=== PATIENT | female | born 1950 | race Caucasian/White ===

== ENCOUNTER → 2016-12-09 | Outpatient (CLI) | payer OTHER ==
[2016-12-09 07:39] LABS: Albumin 3.4 g/dL (3.4-5.0); Calcium 8.1 mg/dL (8.5-10.1); Potassium 4.8 mmol/L (3.5-5.1)
[2016-12-09 07:42] LABS: BUN/Creatinine Ratio 13.3; Bilirubin, Total 0.2 mg/dL (0.2-1.0)
== END | disposition home or self-care (01) ==
LOC: LAB 06:34
PROVIDERS: ATTEND Internal Medicine
DX: N18.3 Chronic kidney disease, stage 3 (moderate) (principal)
CPT/HCPCS: 36415; 80053

== ENCOUNTER → 2017-03-25 | Outpatient (CLI) | payer OTHER ==
[2017-03-25 07:39] LABS: Albumin 3.4 g/dL (3.4-5.0); BUN/Creatinine Ratio 13.5; Bilirubin, Total 0.3 mg/dL (0.2-1.0); Calcium 8.2 mg/dL (8.5-10.1); Potassium 4.1 mmol/L (3.5-5.1)
== END | disposition home or self-care (01) ==
LOC: LAB 06:28
PROVIDERS: ATTEND Internal Medicine
DX: N18.3 Chronic kidney disease, stage 3 (moderate) (principal); Z12.11 Encounter for screening for malignant neoplasm of colon
CPT/HCPCS: 36415; 80053

== ENCOUNTER → 2017-05-05 | Outpatient (CLI) | payer OTHER | END | disposition home or self-care (01) | LOC: LAB 13:57 | PROVIDERS: ATTEND Internal Medicine | DX: Z12.11 Encounter for screening for malignant neoplasm of colon (principal) ==

== ENCOUNTER → 2017-07-17 | Outpatient (CLI) | payer OTHER ==
[2017-07-17 08:05] LABS: Basophils # (auto) 0 uL; Basophils % (auto) 0.6 % (0.0-2.0); Eosinophils # (auto) 0.2 uL; Eosinophils % (auto) 2.4 % (0.0-7.0); Hematocrit 40.5 % (36.0-46.0); Hemoglobin 13.4 g/dL (12.2-16.2); Lymphocytes # (auto) 1.6 uL; Lymphocytes % (auto) 21.7 % (10.0-50.0); Mean Corpuscular Hgb Conc. 33.2 g/dL (32.0-36.0); Mean Corpuscular Volume 90.3 fL (80.0-100.0); Mean Platelet Volume 7.4 fL (6.9-10.8); Monocytes # (auto) 0.4 uL; Monocytes % (auto) 5.8 % (0.0-12.0); Neutrophils % (auto) 69.5 % (37.0-80.0); Nucleated Red Blood Cells % 0.1 %; Platelet Count (auto) 215 10^3/uL (140-450); Red Cell Distribution Width 13.5 % (11.8-14.3); White Blood Cell 7.2 10^3/uL (4.4-10.8)
[2017-07-17 08:25] LABS: Albumin 3.5 g/dL (3.4-5.0); BUN/Creatinine Ratio 14.5; Bilirubin, Total 0.3 mg/dL (0.2-1.0); Calcium 8.7 mg/dL (8.5-10.1); Potassium 4.1 mmol/L (3.5-5.1); Total Protein 7.1 g/dL (6.4-8.2)
== END | disposition home or self-care (01) ==
LOC: LAB 06:38
PROVIDERS: ATTEND Internal Medicine
DX: I12.9 Hypertensive chronic kidney disease with stage 1 through stage 4 chronic kidney disease, or unspecified chronic kidney disease (principal); N18.3 Chronic kidney disease, stage 3 (moderate); E03.9 Hypothyroidism, unspecified
CPT/HCPCS: 36415; 80053; 80061; 84443; 85025

== ENCOUNTER → 2017-10-28 | Outpatient (CLI) | payer OTHER ==
[2017-10-28 08:24] LABS: Albumin 3.6 g/dL (3.4-5.0); BUN/Creatinine Ratio 14.4; Bilirubin, Total 0.4 mg/dL (0.2-1.0); Calcium 8.5 mg/dL (8.5-10.1); Potassium 3.9 mmol/L (3.5-5.1); Total Protein 7.3 g/dL (6.4-8.2)
== END | disposition home or self-care (01) ==
LOC: LAB 06:43
PROVIDERS: ATTEND Internal Medicine
DX: Z00.01 Encounter for general adult medical examination with abnormal findings (principal); I12.9 Hypertensive chronic kidney disease with stage 1 through stage 4 chronic kidney disease, or unspecified chronic kidney disease; N18.3 Chronic kidney disease, stage 3 (moderate); E03.9 Hypothyroidism, unspecified
CPT/HCPCS: 36415; 80053; 82270

== ENCOUNTER → 2018-04-30 | Outpatient (CLI) | payer OTHER ==
[2018-04-30 08:16] LABS: Basophils # (auto) 0.1 uL; Basophils % (auto) 0.8 % (0.0-2.0); Eosinophils # (auto) 0.1 uL; Eosinophils % (auto) 2.2 % (0.0-7.0); Hematocrit 40.7 % (36.0-46.0); Hemoglobin 13.4 g/dL (12.2-16.2); Lymphocytes # (auto) 1.6 uL; Mean Corpuscular Hemoglobin 29.8 pg (28.0-32.0); Mean Corpuscular Hgb Conc. 32.9 g/dL (32.0-36.0); Mean Corpuscular Volume 90.4 fL (80.0-100.0); Monocytes # (auto) 0.4 uL; Monocytes % (auto) 6.2 % (0.0-12.0); Neutrophils # (auto) 4.6 uL; Neutrophils % (auto) 67.8 % (37.0-80.0); Platelet Count (auto) 220 10^3/uL (140-450); Red Cell Distribution Width 13.9 % (11.8-14.3); White Blood Cell 6.8 10^3/uL (4.4-10.8)
[2018-04-30 08:57] LABS: Albumin 3.5 g/dL (3.4-5.0); BUN/Creatinine Ratio 21.9; Bilirubin, Total 0.3 mg/dL (0.2-1.0); Calcium 8.8 mg/dL (8.5-10.1); Potassium 4.2 mmol/L (3.5-5.1); Total Protein 7.4 g/dL (6.4-8.2)
== END | disposition home or self-care (01) ==
LOC: LAB 07:03
PROVIDERS: ATTEND Internal Medicine
DX: Z00.01 Encounter for general adult medical examination with abnormal findings (principal); Z12.11 Encounter for screening for malignant neoplasm of colon; I12.9 Hypertensive chronic kidney disease with stage 1 through stage 4 chronic kidney disease, or unspecified chronic kidney disease; N18.3 Chronic kidney disease, stage 3 (moderate); E03.9 Hypothyroidism, unspecified
CPT/HCPCS: 36415; 80053; 80061; 82306; 84443; 85025

== ENCOUNTER → 2018-05-25 | Outpatient (CLI) | payer OTHER | END | disposition home or self-care (01) | LOC: LAB 10:06 | PROVIDERS: ATTEND Internal Medicine | DX: Z12.11 Encounter for screening for malignant neoplasm of colon (principal); I12.9 Hypertensive chronic kidney disease with stage 1 through stage 4 chronic kidney disease, or unspecified chronic kidney disease; N18.3 Chronic kidney disease, stage 3 (moderate); E03.9 Hypothyroidism, unspecified | CPT/HCPCS: 82270 ==

== ENCOUNTER → 2019-01-25 | Outpatient (CLI) | payer BC, OTHER ==
[2019-01-25 08:23] LABS: Potassium 4.8 mmol/L (3.5-5.1)
[2019-01-25 08:26] LABS: Albumin 3.5 g/dL (3.4-5.0); Calcium 9.2 mg/dL (8.5-10.1)
[2019-01-25 08:32] LABS: BUN/Creatinine Ratio 13.4; Bilirubin, Total 0.3 mg/dL (0.2-1.0); Total Protein 7.2 g/dL (6.4-8.2)
== END | disposition home or self-care (01) ==
LOC: LAB 07:21
PROVIDERS: ATTEND Internal Medicine
DX: I12.9 Hypertensive chronic kidney disease with stage 1 through stage 4 chronic kidney disease, or unspecified chronic kidney disease (principal); N18.3 Chronic kidney disease, stage 3 (moderate)
CPT/HCPCS: 36415; 80053

== ENCOUNTER → 2019-06-28 | Outpatient (CLI) | payer BC ==
[2019-06-28 10:28] LABS: Basophils # (auto) 0.1 uL; Basophils % (auto) 0.9 % (0.0-2.0); Eosinophils # (auto) 0.1 uL; Eosinophils % (auto) 1.6 % (0.0-7.0); Hematocrit 38.7 % (36.0-46.0); Hemoglobin 13.3 g/dL (12.2-16.2); Lymphocytes # (auto) 1.1 uL; Lymphocytes % (auto) 13.7 % (10.0-50.0); Mean Corpuscular Hgb Conc. 34.4 g/dL (32.0-36.0); Mean Corpuscular Volume 90.1 fL (80.0-100.0); Monocytes # (auto) 0.4 uL; Monocytes % (auto) 5.5 % (0.0-12.0); Neutrophils # (auto) 6.2 uL; Neutrophils % (auto) 78.3 % (37.0-80.0); Nucleated Red Blood Cells % 0.1 %; Platelet Count (auto) 220 10^3/uL (140-450); Red Cell Distribution Width 13.3 % (11.8-14.3); White Blood Cell 7.9 10^3/uL (4.4-10.8)
[2019-06-28 11:17] LABS: Albumin 3.6 g/dL (3.4-5.0); Calcium 8.7 mg/dL (8.5-10.1); Potassium 4.1 mmol/L (3.5-5.1)
[2019-06-28 11:22] LABS: BUN/Creatinine Ratio 15.8; Bilirubin, Total 0.4 mg/dL (0.2-1.0); Total Protein 7.2 g/dL (6.4-8.2)
== END | disposition home or self-care (01) ==
LOC: LAB 07:12
PROVIDERS: ATTEND Internal Medicine
DX: Z00.00 Encounter for general adult medical examination without abnormal findings (principal); Z12.11 Encounter for screening for malignant neoplasm of colon; E78.5 Hyperlipidemia, unspecified; I10 Essential (primary) hypertension
CPT/HCPCS: 36415; 80053; 80061; 82274; 82306; 84443; 85025

== ENCOUNTER → 2023-09-19 | Outpatient (CLI) | payer BC | END | disposition home or self-care (01) | LOC: LAB 06:38 | PROVIDERS: ATTEND Internal Medicine | DX: E55.9 Vitamin D deficiency, unspecified (principal) | CPT/HCPCS: 82306 ==

== ENCOUNTER → 2023-10-21 | Outpatient (CLI) | payer BC ==
[2023-10-21 07:00] LABS: Urine Epithelial Cast None Seen /hpf (<5)
[2023-10-21 07:28] LABS: Urine Bacteria NONE SEEN /hpf (None Seen); Urine Blood Negative /uL (Negative); Urine Clarity Clear (Clear); Urine Protein, UAD Negative (Negative); Urine Specific Gravity 1.008 (1.001-1.035); Urine Urobilinogen Normal (Negative); Urine WBC 2 /hpf (0 - 5)
[2023-10-21 07:35] LABS: Potassium 4.6 mmol/L (3.5-5.1)
[2023-10-21 07:36] LABS: Calcium 10.1 mg/dL (8.5-10.1)
[2023-10-21 07:41] LABS: BUN/Creatinine Ratio 13.8 (10.0-20.0); Protein, Urine < 6.0 mg/dL (0.0-11.9)
[2023-10-21 07:43] LABS: Albumin 4.1 g/dL (3.2-4.8); Creatinine, Urine 31.93 mg/dL (30.0-125.0); Phosphorus 3.1 mg/dL (2.4-5.1); Urine Protein/Creatinine Ratio 0.19
[2023-10-21 08:01] LABS: Urine Color Straw (Yellow)
[2023-10-21 08:32] LABS: Uric Acid 5.4 mg/dL (3.1-7.8)
== END | disposition home or self-care (01) ==
LOC: LAB 06:45
PROVIDERS: ATTEND Internal Medicine
DX: N18.31 Chronic kidney disease, stage 3a (principal); R80.9 Proteinuria, unspecified; R82.90 Unspecified abnormal findings in urine; M10.9 Gout, unspecified; E78.5 Hyperlipidemia, unspecified; E21.3 Hyperparathyroidism, unspecified; D63.1 Anemia in chronic kidney disease
CPT/HCPCS: 36415; 80069; 81001; 82306; 82570; 83970; 84156; 84550

== ENCOUNTER → 2024-03-02 | Outpatient (CLI) | payer BC ==
[2024-03-02 06:30] LABS: Urine Bacteria None Seen /hpf (None Seen)
[2024-03-02 07:00] LABS: Basophils # (auto) 0 10 ^3/uL (0-0.2); Basophils % (auto) 0.5 % (0.0-2.0); Eosinophils # (auto) 0.1 10 ^3/uL (0-0.8); Eosinophils % (auto) 2.2 % (0.0-7.0); Hematocrit 39.4 % (36.0-46.0); Hemoglobin 13.4 g/dL (12.2-16.2); Lymphocytes % (auto) 30.5 % (10.0-50.0); Mean Corpuscular Hgb Conc. 33.9 g/dL (32.0-36.0); Mean Corpuscular Volume 88.4 fL (80.0-100.0); Monocytes # (auto) 0.4 10 ^3/uL (0-1.3); Monocytes % (auto) 6.2 % (0.0-12.0); Neutrophils # (auto) 4.1 10 ^3/uL (1.6-8.6); Neutrophils % (auto) 60.6 % (37.0-80.0); Nucleated Red Blood Cells % 0.1 %; Red Blood Cells 4.46 10^6/uL (4.0-5.20); Red Cell Distribution Width 13.3 % (11.8-14.3); White Blood Cell 6.7 10^3/uL (4.4-10.8)
[2024-03-02 07:11] LABS: Urine Blood Negative /uL (Negative); Urine Clarity Clear (Clear); Urine Color Light-Yellow (Yellow); Urine Protein, UAD Negative (Negative); Urine Specific Gravity 1.011 (1.001-1.035); Urine Urobilinogen Normal (Negative); Urine WBC 3 /hpf (0 - 5)
[2024-03-02 07:20] LABS: Potassium 4.3 mmol/L (3.5-5.1)
[2024-03-02 07:21] LABS: Calcium 9.9 mg/dL (8.5-10.1)
[2024-03-02 07:26] LABS: Albumin 3.9 g/dL (3.2-4.8); BUN/Creatinine Ratio 12.1 (10.0-20.0)
[2024-03-02 07:28] LABS: Phosphorus 3.1 mg/dL (2.4-5.1)
[2024-03-02 07:43] LABS: Uric Acid 6.1 mg/dL (3.1-7.8)
[2024-03-02 08:14] LABS: Creatinine, Urine 60.68 mg/dL (30.0-125.0)
[2024-03-02 08:18] LABS: Protein, Urine 8.1 mg/dL (0.0-11.9); Urine Protein/Creatinine Ratio 0.13
== END | disposition home or self-care (01) ==
LOC: LAB 06:12
PROVIDERS: ATTEND Internal Medicine
DX: N18.31 Chronic kidney disease, stage 3a (principal); D63.1 Anemia in chronic kidney disease; E21.3 Hyperparathyroidism, unspecified; E78.5 Hyperlipidemia, unspecified; M10.9 Gout, unspecified; R80.9 Proteinuria, unspecified; R82.90 Unspecified abnormal findings in urine
CPT/HCPCS: 36415; 80069; 81001; 82306; 82570; 83970; 84156; 84550; 85025

== ENCOUNTER → 2024-06-29 | Outpatient (CLI) | payer BC ==
[2024-06-29 12:21] LABS: Free T3 2.22 pg/mL (2.3-4.2)
[2024-06-29 12:25] LABS: Free T4 (Free Thyroxine) 1.03 ng/dL (0.89-1.76)
== END | disposition home or self-care (01) ==
LOC: LAB 10:03
PROVIDERS: ATTEND Internal Medicine
DX: G62.9 Polyneuropathy, unspecified (principal); E03.9 Hypothyroidism, unspecified
CPT/HCPCS: 36415; 82607; 84439; 84443; 84481

== ENCOUNTER → 2024-07-13 | Outpatient (CLI) | payer BC ==
[2024-07-13 07:36] LABS: Urine Bacteria None Seen /hpf (None Seen)
[2024-07-13 07:38] LABS: Basophils # (auto) 0 10 ^3/uL (0-0.2); Basophils % (auto) 0.7 % (0.0-2.0); Eosinophils # (auto) 0.1 10 ^3/uL (0-0.8); Eosinophils % (auto) 2.1 % (0.0-7.0); Hematocrit 40.1 % (36.0-46.0); Hemoglobin 13.2 g/dL (12.2-16.2); Lymphocytes # (auto) 1.5 10 ^3/uL (0.4-5.4); Lymphocytes % (auto) 23.2 % (10.0-50.0); Mean Corpuscular Hemoglobin 29.9 pg (28.0-32.0); Mean Corpuscular Hgb Conc. 32.9 g/dL (32.0-36.0); Monocytes # (auto) 0.4 10 ^3/uL (0-1.3); Monocytes % (auto) 6.7 % (0.0-12.0); Neutrophils # (auto) 4.4 10 ^3/uL (1.6-8.6); Neutrophils % (auto) 67.3 % (37.0-80.0); Nucleated Red Blood Cells % 0.1 %; Platelet Count (auto) 209 10^3/uL (140-450); Red Blood Cells 4.41 10^6/uL (4.0-5.20); Red Cell Distribution Width 14.6 % (11.8-14.3); White Blood Cell 6.5 10^3/uL (4.4-10.8)
[2024-07-13 07:59] LABS: Urine Blood Negative /uL (Negative); Urine Clarity Clear (Clear); Urine Color Light-Yellow (Yellow); Urine Protein, UAD Negative (Negative); Urine Specific Gravity 1.011 (1.001-1.035); Urine Urobilinogen Normal (Negative); Urine WBC 2 /hpf (0 - 5)
[2024-07-13 08:23] LABS: Potassium 5.1 mmol/L (3.5-5.1)
[2024-07-13 08:24] LABS: Calcium 10.2 mg/dL (8.7-10.4)
[2024-07-13 08:25] LABS: Protein, Urine < 6.0 mg/dL (1-14)
[2024-07-13 08:27] LABS: Creatinine, Urine 38.37 mg/dL (30.0-125.0); Urine Protein/Creatinine Ratio 0.16
[2024-07-13 08:30] LABS: Albumin 3.9 g/dL (3.2-4.8)
[2024-07-13 08:31] LABS: Phosphorus 4.1 mg/dL (2.4-5.1)
== END | disposition home or self-care (01) ==
LOC: LAB 07:23
PROVIDERS: ATTEND Internal Medicine
DX: E11.21 Type 2 diabetes mellitus with diabetic nephropathy (principal); N39.0 Urinary tract infection, site not specified; N18.30 Chronic kidney disease, stage 3 unspecified; E21.3 Hyperparathyroidism, unspecified; D63.1 Anemia in chronic kidney disease; M10.9 Gout, unspecified; E55.9 Vitamin D deficiency, unspecified; R80.9 Proteinuria, unspecified
CPT/HCPCS: 36415; 80069; 81001; 82570; 83970; 84156; 84550; 85025

== ENCOUNTER 2024-09-03 10:23 | Day surgery (SDC) | payer BC ==
[2024-09-01 09:25] LABS: Urine Bacteria None Seen /hpf (None Seen)
[2024-09-01 09:28] LABS: Basophils # (auto) 0 10 ^3/uL (0-0.2); Basophils % (auto) 0.7 % (0.0-2.0); Eosinophils # (auto) 0.1 10 ^3/uL (0-0.8); Eosinophils % (auto) 1.4 % (0.0-7.0); Hematocrit 40.6 % (36.0-46.0); Hemoglobin 13.2 g/dL (12.2-16.2); Lymphocytes # (auto) 1.3 10 ^3/uL (0.4-5.4); Lymphocytes % (auto) 18.2 % (10.0-50.0); Mean Corpuscular Hemoglobin 29.2 pg (28.0-32.0); Mean Corpuscular Hgb Conc. 32.5 g/dL (32.0-36.0); Monocytes # (auto) 0.4 10 ^3/uL (0-1.3); Monocytes % (auto) 5.5 % (0.0-12.0); Neutrophils # (auto) 5.1 10 ^3/uL (1.6-8.6); Neutrophils % (auto) 74.2 % (37.0-80.0); Nucleated Red Blood Cells % 0.1 %; Red Blood Cells 4.51 10^6/uL (4.0-5.20); Red Cell Distribution Width 14.2 % (11.8-14.3); White Blood Cell 6.9 10^3/uL (4.4-10.8)
[2024-09-01 09:29] LABS: Platelet Count (auto) 192 10^3/uL (140-450)
[2024-09-01 10:10] LABS: INR 1.12 (0.9-1.15); Partial Thromboplastin Time 25.2 SEC (24.5-34.5); Prothrombin Time 11.8 sec (9.3-11.8)
[2024-09-01 10:15] LABS: Urine Blood Negative /uL (Negative); Urine Clarity Clear (Clear); Urine Color Light-Yellow (Yellow); Urine Hyaline Cast FEW /lpf (0 - 2); Urine Protein, UAD Negative (Negative); Urine Specific Gravity 1.016 (1.001-1.035); Urine Urobilinogen Normal (Negative); Urine WBC 1 /hpf (0 - 5)
[2024-09-01 11:05] LABS: Alanine Aminotransferase 11 U/L (7-40); Albumin 3.9 g/dL (3.2-4.8); Alkaline Phosphatase 48 U/L (46-116); Anion Gap 9 (5-15); Aspartate Aminotransferase 16 U/L (13-40); BUN/Creatinine Ratio 12.4 (10.0-20.0); Blood Urea Nitrogen 18 mg/dL (9-23); Calcium 10.3 mg/dL (8.7-10.4); Carbon Dioxide 25 mmol/L (20-31); Glucose 89 mg/dL (74-106); Potassium 4.1 mmol/L (3.5-5.1); Sodium 141 mmol/L (136-145); Total Protein 6.5 g/dL (5.7-8.2)
[2024-09-01 11:18] LABS: Bilirubin, Total 0.2 mg/dL (0.2-1.0); Chloride 107 mmol/L (98-107)
[~2024-09-03] VITALS: Ht 147.3 cm; Wt 52.2 kg
[~2024-09-03 10:23] MED LIST: AMIT25TA20 PO; CITA-73 PO; LEVO50TA7 PO; RALO60TA14 PO; RIS1T PO
[2024-09-03] MEDS ORDERED: KETAMINE 50mg/ML 1ml syringe IV ONE (10:24)
[2024-09-03 13:46] VITALS: PULSE 77; RESP 10; O2SAT 98
[2024-09-03] MEDS ORDERED: MIDAZOLAM HCL 2MG/2ML 2ml VIAL (1mg/ml) ONE (14:06)
[2024-09-03] MEDS ORDERED: PROPOFOL 10 MG/ML 20 ML IV ONE (14:07)
[2024-09-03 14:46] VITALS: PULSE 77; RESP 10; TEMP 99.4; O2SAT 98
--- NOTE | 2024-09-03 15:21 | DVHOP2 ---
Operative Report DATE OF OPERATION: 09/03/24 PROCEDURE: Diagnostic Colonoscopy. PREOPERATIVE INDICATION: The patient is a 74 -year-old female undergoing colonoscopy for colon cancer screening with personal history of chronic constipation POSTOPERATIVE DIAGNOSES: 1. Patient had moderate to severe tortuosity and redundancy of the colon 2. Trace internal hemorrhoids otherwise essentially completely normal colonoscopy examination up to the cecum and terminal ileum PROCEDURE PERFORMED BY: Tolu Escobar M.D. SCOPE: Olympus videocolonoscope. ASA CLASS: 3. PREOPERATIVE MEDICATIONS: Dr. Javi Hook PROCEDURE IN DETAIL: After obtaining an informed consent, the patient was placed on left lateral decubitus position. She was then sedated with the above medications. A rectal examination was performed that was normal. The colonoscope was then passed through the anus into the rectosigmoid and through the descending, transverse, and ascending colon up to the cecum with visualization of the appendiceal orifice, base of the cecum and the i leocecal valve. The colonoscope was then withdrawn. The distal 5 cm of the terminal ileum were normal. The patient had [id number] tortuosity and redundancy of the entire colon especially involving the mid transverse and the splenic flexure. This patient had a slightly poor prep however after careful irrigation aspiration no gross lesion was seen On retroflexion and straight on view she had trace to 1+ internal hemorrhoids The patient tolerated the procedure well without difficulty. WITHDRAWAL TIME: 7 minutes QUALITY OF THE PREP: [place] Bowel Prep score: 8 COMPLICATIONS : None SPECIMENS: None DISPOSITION: Stable D/C to home PLAN: 1. Repeat colonoscopy in 10 years 2. Resume GI soft diet advance as tolerated 3. Local anorectal hemorrhoidal care 4. MiraLax and stool softeners 5. Outpatient follow up with me in 4-6 weeks to review results and discuss further management TOLU ESCOBAR MD Sep 03, 2024 15:21
[2024-09-03 16:10] VITALS: BP 153/76; PULSE 79; RESP 17; O2SAT 95
== END 2024-09-03 16:16 | disposition home or self-care (01) ==
LOC: GI 10:23
PROVIDERS: ATTEND Internal Medicine Gastroenterology
DX: K59.09 Other constipation (principal); Q43.8 Other specified congenital malformations of intestine; K64.8 Other hemorrhoids; N18.30 Chronic kidney disease, stage 3 unspecified; F20.9 Schizophrenia, unspecified; E03.9 Hypothyroidism, unspecified; Z90.710 Acquired absence of both cervix and uterus; Z88.2 Allergy status to sulfonamides; Z79.890 Hormone replacement therapy; Z98.51 Tubal ligation status
CPT/HCPCS: 36415; 45378; 80053; 81001; 85025; 85610; 85730; J2250; J2704; J7030; J2405

== ENCOUNTER → 2024-10-04 | Outpatient (CLI) | payer BC ==
[2024-10-04 07:01] LABS: Urine Bacteria None Seen /hpf (None Seen)
[2024-10-04 07:30] LABS: Urine Blood Negative /uL (Negative); Urine Clarity Clear (Clear); Urine Color Light-Yellow (Yellow); Urine Protein, UAD Negative (Negative); Urine Specific Gravity 1.015 (1.001-1.035); Urine Squamous Epithelial Cell None Seen /hpf (<5); Urine Urobilinogen Normal (Negative); Urine WBC 2 /hpf (0 - 5)
[2024-10-04 08:02] LABS: Creatinine, Urine 53.67 mg/dL (30.0-125.0)
[2024-10-04 08:05] LABS: Basophils # (auto) 0 10 ^3/uL (0-0.2); Basophils % (auto) 0.7 % (0.0-2.0); Eosinophils # (auto) 0.1 10 ^3/uL (0-0.8); Eosinophils % (auto) 2.3 % (0.0-7.0); Hematocrit 40.6 % (36.0-46.0); Hemoglobin 13.5 g/dL (12.2-16.2); Lymphocytes # (auto) 1.5 10 ^3/uL (0.4-5.4); Lymphocytes % (auto) 25.6 % (10.0-50.0); Mean Corpuscular Hemoglobin 29.5 pg (28.0-32.0); Mean Corpuscular Hgb Conc. 33.2 g/dL (32.0-36.0); Mean Corpuscular Volume 88.9 fL (80.0-100.0); Monocytes # (auto) 0.4 10 ^3/uL (0-1.3); Monocytes % (auto) 7.4 % (0.0-12.0); Neutrophils # (auto) 3.7 10 ^3/uL (1.6-8.6); Nucleated Red Blood Cells % 0.1 %; Platelet Count (auto) 184 10^3/uL (140-450); Red Blood Cells 4.56 10^6/uL (4.0-5.20); Red Cell Distribution Width 13.9 % (11.8-14.3); White Blood Cell 5.7 10^3/uL (4.4-10.8)
[2024-10-04 08:06] LABS: Alanine Aminotransferase 10 U/L (7-40); Alkaline Phosphatase 49 U/L (46-116); Anion Gap 7 (5-15); Aspartate Aminotransferase 21 U/L (13-40); BUN/Creatinine Ratio 16.2 (10.0-20.0); Blood Urea Nitrogen 22 mg/dL (9-23); Calcium 9.4 mg/dL (8.7-10.4); Carbon Dioxide 24 mmol/L (20-31); Chloride 107 mmol/L (98-107); Cholesterol 187 mg/dL (< 200); Glucose 87 mg/dL (74-106); LDL Cholesterol 88 mg/dL (< 100); Potassium 4.2 mmol/L (3.5-5.1); Sodium 138 mmol/L (136-145); Triglycerides 103 mg/dL (< 150)
[2024-10-04 08:07] LABS: Bilirubin, Total 0.3 mg/dL (0.2-1.0); Total Protein 6.6 g/dL (5.7-8.2)
[2024-10-04 08:09] LABS: Micro Albumin < 3.0 mg/L (<30.0)
[2024-10-04 08:10] LABS: HDL Cholesterol 77 mg/dL (40-59)
[2024-10-04 10:43] LABS: Free T3 2.54 pg/mL (2.3-4.2)
[2024-10-04 10:44] LABS: Free T4 (Free Thyroxine) 1.06 ng/dL (0.89-1.76)
== END | disposition home or self-care (01) ==
LOC: LAB 06:11
PROVIDERS: ATTEND Internal Medicine
DX: Z00.01 Encounter for general adult medical examination with abnormal findings (principal); I13.0 Hypertensive heart and chronic kidney disease with heart failure and stage 1 through stage 4 chronic kidney disease, or unspecified chronic kidney disease; I50.42 Chronic combined systolic (congestive) and diastolic (congestive) heart failure; N18.32 Chronic kidney disease, stage 3b; E03.9 Hypothyroidism, unspecified; I77.810 Thoracic aortic ectasia
CPT/HCPCS: 36415; 80053; 80061; 81001; 82043; 82570; 83036; 84439; 84443; 84481; 85025

== ENCOUNTER → 2025-01-07 | Outpatient (CLI) | payer BC ==
[2025-01-07 06:35] LABS: Urine Bacteria None Seen /hpf (None Seen)
[2025-01-07 06:54] LABS: Basophils # (auto) 0 10 ^3/uL (0-0.2); Basophils % (auto) 0.6 % (0.0-2.0); Eosinophils # (auto) 0.2 10 ^3/uL (0-0.8); Eosinophils % (auto) 2.9 % (0.0-7.0); Lymphocytes # (auto) 1.7 10 ^3/uL (0.4-5.4); Lymphocytes % (auto) 30.1 % (10.0-50.0); Mean Corpuscular Hemoglobin 29.8 pg (28.0-32.0); Mean Corpuscular Hgb Conc. 33.3 g/dL (32.0-36.0); Mean Corpuscular Volume 89.4 fL (80.0-100.0); Monocytes # (auto) 0.4 10 ^3/uL (0-1.3); Neutrophils # (auto) 3.2 10 ^3/uL (1.6-8.6); Neutrophils % (auto) 58.4 % (37.0-80.0); Platelet Count (auto) 196 10^3/uL (140-450); Red Blood Cells 4.36 10^6/uL (4.0-5.20); Red Cell Distribution Width 14.2 % (11.8-14.3); White Blood Cell 5.5 10^3/uL (4.4-10.8)
[2025-01-07 06:57] LABS: Potassium 4.4 mmol/L (3.5-5.1)
[2025-01-07 06:58] LABS: Calcium 10.3 mg/dL (8.7-10.4)
[2025-01-07 07:03] LABS: BUN/Creatinine Ratio 9.6 (10.0-20.0)
[2025-01-07 07:04] LABS: Albumin 4.2 g/dL (3.2-4.8)
[2025-01-07 07:05] LABS: Urine Blood Negative /uL (Negative); Urine Clarity Clear (Clear); Urine Color Light-Yellow (Yellow); Urine Protein, UAD Negative (Negative); Urine Squamous Epithelial Cell None Seen /hpf (<5); Urine Urobilinogen Normal (Negative); Urine WBC 1 /HPF (0-5); Urine pH 5.5 (5.0-9.0)
[2025-01-07 07:06] LABS: Phosphorus 3.8 mg/dL (2.4-5.1)
[2025-01-07 07:25] LABS: Uric Acid 6.6 mg/dL (3.1-7.8)
[2025-01-07 07:31] LABS: Creatinine, Urine 30.21 mg/dL (30.0-125.0)
[2025-01-07 07:38] LABS: Micro Albumin < 3.0 mg/L (<30.0)
== END | disposition home or self-care (01) ==
LOC: LAB 06:23
PROVIDERS: ATTEND Internal Medicine
DX: E11.21 Type 2 diabetes mellitus with diabetic nephropathy (principal); E11.22 Type 2 diabetes mellitus with diabetic chronic kidney disease; N18.30 Chronic kidney disease, stage 3 unspecified; N39.0 Urinary tract infection, site not specified; E21.3 Hyperparathyroidism, unspecified; R80.9 Proteinuria, unspecified; M10.9 Gout, unspecified; E55.9 Vitamin D deficiency, unspecified; D63.1 Anemia in chronic kidney disease
CPT/HCPCS: 36415; 80069; 81001; 82043; 82570; 83970; 84550; 85025

== ENCOUNTER 2025-05-12 08:02 | Outpatient (CLI) | payer BC ==
[2025-05-12 08:23] LABS: Hematocrit 38.9 % (36.0-46.0); Hemoglobin 13.2 g/dL (12.2-16.2); Mean Corpuscular Hemoglobin 29.6 pg (28.0-32.0); Mean Corpuscular Volume 87.2 fL (80.0-100.0); Nucleated Red Blood Cells % 0.1 %
[2025-05-12 08:27] LABS: Urine Protein, UAD Negative (Negative)
[2025-05-12 08:29] LABS: Chloride 106.0 mmol/L (98-107); Sodium 142.0 mmol/L (136-145)
[2025-05-12 08:30] LABS: Anion Gap 6.0 (5-15); Calcium 10.0 mg/dL (8.7-10.4); Carbon Dioxide 30.0 mmol/L (20-31)
[2025-05-12 08:35] LABS: BUN/Creatinine Ratio 10.6 (10.0-20.0); Blood Urea Nitrogen 15.0 mg/dL (9-23); Glucose 93.0 mg/dL (74-106)
[2025-05-12 08:37] LABS: Albumin 4.4 g/dL (3.2-4.8)
[2025-05-12 08:42] LABS: Potassium 5.7 mmol/L (3.5-5.1)
[2025-05-12 08:52] LABS: Protein, Urine < 6.0 mg/dL (1-14)
[2025-05-12 09:18] LABS: Uric Acid 6.8 mg/dL (3.1-7.8)
[2025-05-12] MEDS ORDERED: NITR-87 PO (14:28)
== END 2025-05-12 17:00 | disposition home or self-care (01) ==
LOC: LAB 08:02
PROVIDERS: ATTEND Internal Medicine
DX: E11.22 Type 2 diabetes mellitus with diabetic chronic kidney disease (principal); E11.21 Type 2 diabetes mellitus with diabetic nephropathy; N18.30 Chronic kidney disease, stage 3 unspecified; E21.3 Hyperparathyroidism, unspecified; E55.9 Vitamin D deficiency, unspecified; N39.0 Urinary tract infection, site not specified; D63.1 Anemia in chronic kidney disease; M10.9 Gout, unspecified; R80.9 Proteinuria, unspecified
CPT/HCPCS: 36415; 80069; 81001; 82306; 82570; 83970; 84156; 84550; 85025

== ENCOUNTER 2025-05-12 09:35 | Emergency (ER) | payer BC ==
[~2025-05-12] VITALS: Ht 147.3 cm; Wt 49.0 kg
[2025-05-12] MEDS ORDERED: InsuLIN REG 1unit/0.01ml Soln (100units/ml) IV ONE (10:00)
[2025-05-12] MEDS ORDERED: DEXTROSE (50%) 50ML SYRG IV ONE (10:00)
--- NOTE | 2025-05-12 10:12 | ED.PDOC ---
History of Present Illness HPI Comments This is a 75-year-old female with past medical history of CKD stage 3, Alzheimer dementia, schizophrenia, hypothyroidism presented to the ED referred from PCP due to abnormal labs. She complains of generalized weakness, loss of balance, intermittent constipation and decreased urine output for last 1 week. She has CKD stage [address] Herring. She denies fever, chills, shortness of breath, chest pain, palpitation, dysuria, hematuria or altered bowel habit. Attestation note: Dr. Aguilera: I was the supervising attending for this ED encounter. Please see the resident's notes. I was available for questions and consultations. Differential diagnosis: MDM: MDM: patient presented with the above HPI.--reported hyperkalemia---workup was initiated. patient was found with the above mentioned diagnosis. the following medications were ordered: please refer to order lists of meds and tests obtained by myself Dr. Aguilera. Patient ED course and VS have been stabilized. Patient has been reassessed in the ED and remained in a stable condition. Pertinent incidental findings were discussed with the patient and/or family. Patient/family voices understanding and is agreeable with plan. Patient has been observed in the ED adequate length of time to insure improvement/stability. Escalation of care considered: Consideration of escalation to observation or admission Repeat labs here in the ED shows normal potassium. Patient was found with possible UTI in the setting of an elderly patient with generalized weakness. Antibiotics were initiated. Patient was DISCHARGED home in a stable condition. All the reports of any imaging studies that were ordered by myself were reviewed by myself. Chief Complaint: Abnormal LAB's Time Seen by MD: 09:40 Allergies: Coded Allergies: Sulfa Antibiotics (Verified Allergy, Intermediate, Flu like symptoms, 09/01/24) Home Meds Active Scripts Nitrofurantoin Monohydrate Mac (Macrobid) 100 Mg Cap, 100 MG PO BID for 7 Days, #14 CAP Prov:JOHNATHAN AGUILERA DO 05/12/25 Reported Medications Citalopram Hydrobromide (Citalopram Hydrobromide) 40 Mg Tab, 40 MG PO DAILY for 30 Days, MG 09/01/24 Raloxifene Hydrochloride (EVISTA TABLET) 60 Mg Tb, 1 TAB PO DAILY, #30 TAB 11 Refills 09/01/24 Levothyroxine Sodium (Levothyroxine Sodium) 50 Mcg Tab, 50 MCG PO QAM for 30 Days, MCG 09/01/24 Amitriptyline Hcl (Amitriptyline Hcl) 25 Mg Tab, 100 MG PO HS for 30 Days, MG 09/01/24 Risperidone (RisperDAL TABLET) 1 Mg Tb, 1 TAB PO QPM, #30 TAB 1 Refill 09/01/24 Information Source: Patient Mode of Arrival: Ambulatory Past Medical History PAST MEDICAL HISTORY: Alzheimer, CKF, Depression, Schizophrenia, Thyroid Surgical History: Hysterectomy DOUBLE END TRIMMER History: Denies all DOUBLE END TRIMMER Hx Family History Family History: Reviewed,noncontributory to illness Social History Smoker: Non-Smoker Alcohol: Denies ETOH Use Drugs: Denies Drug Use Lives In: Home Constitutional: reports: fatigue, weakness; denies: chills, diaphoresis, fever, malaise, sweats, others EENTM: denies: blurred vision, double vision, ear bleeding, ear discharge, ear drainage, ear pain, ear ringing, eye pain, eye redness, hearing loss, mouth pain, mouth swelling, nasal discharge, nose bleeding, nose congestion, nose pain, photophobia, tearing, throat pain, throat swelling, voice changes, others Respiratory: denies: cough, hemoptysis, orthopnea, SOB at rest, shortness of breath, SOB with excertion, stridor, wheezing, others Cardiovascular: denies: chest pain, dizzy spells, diaphoresis, Dyspnea on exertion, edema, irregular heart beat, left arm pain, lightheadedness, palpitations, PND, syncope, others Gastrointestinal: reports: constipated; denies: abdomen distended, abdominal pain, blood streaked bowels, diarrhea, dysphagia, difficulty swallowing, hematemesis, melena, nausea, poor appetite, poor fluid intake, rectal bleeding, rectal pain, vomiting, others Genitourinary: denies: abnormal vagina bleeding, burning, dyspareunia, dysuria, flank pain, frequency, hematuria, incontinence, pain, , vagina discharge, urgency, others Neurological: denies: dizziness, fainting, headache, left sided numbness, left sided weakness, numbness, paresthesia, pre-existing deficit, right sided numbness, right sided weakness, seizure, speech problems, tingling, tremors, weakness, others Musculoskeletal: denies: back pain, gout, joint pain, joint swelling, muscle pain, muscle stiffness, neck pain, others Integumetry: denies: bruises, change in color, change in hair/nails, dryness, laceration, lesions, lumps, rash, wounds, others Allergic/Immunocompromised: denies: Difficulty Healing, Frequent Infections, Hives, Itching, others Hematologic/Lymphatic: denies: anemia, blood clots, easy bleeding, easy bruising, swollen glands, others Endocrine: denies: excessive hunger, excessive sweating, excessive thirst, excessive urination, flushing, intolerance to cold, intolerance to heat, une xplained weight gain, unexplained weight loss, others Psychiatric: reports: depression, schizophrenia; denies: anxiety, bipolar disorder, hopeless, panic disorder, sleepless, suicidal, others Physical Exam General Appearance: Normal HEENT: Normal ENT Inspection, Pharynx Normal, TMs Normal Neck: Full Range of Motion, Non-Tender, Normal, Normal Inspection Respiratory: Chest Non-Tender, Lungs Clear, No Accessory Muscle Use, No Respiratory Distress, Normal Breath Sounds Cardiovascular: No Edema, No JVD, No Murmur, No Gallop, Normal Peripheral Pulses, Regular Rate/Rhythm Breast Exam: Deferred Gastrointestinal: No Organomegaly, Non Tender, No Pulsatile Mass, Normal Bowel Sounds, Soft Genitalia: Deferred Pelvic: Deferred Rectal: Deferred Extremities: No calf tenderness, Normal capillary refill, Normal inspection, Normal range of motion, Non-tender, No pedal edema Neurologic: NOT DONE Cerebellar Function: NOT DONE Reflexes: NOT DONE Skin: NOT DONE Peripheral Pulses: 2+ carotid (R), 2+ carotid (L), 2+ femoral (R), 2+ femoral (L), 2+ dorsalis pedis (R), 2+ dorsalis pedis (L), 2+ Radial (R), 2+ Radial (L), 2+ Brachial (R), 2+ Brachial (L) Lymphatic: NOT DONE Was a procedure done? Was a procedure done?: No EKG EKG : Cardiac Rhythm: NSR Comments EKG revealed normal sinus rhythm, nonspecific ST-T changes Differential Dx Considerations may include: Hyperkalemia, GURINDER on CKD, UTI, generalized weakness X-Ray, Labs, Meds, VS Vital Signs Date Time Temp Pulse Resp B/P (MAP) Pulse Ox O2 Delivery O2 Flow Rate FiO2 8/14/25 14:00 97 22 103/69 (80) 95 05/12/25 13:25 97.9 89 23 149/76 (100) 96 97.9 05/12/25 13:01 Room Air* 0 21 05/12/25 11:37 96 Room Air* 0 21 05/12/25 11:36 97.9 82 24 146/76 (99) 96 97.9 05/12/25 10:46 85 16 98 Room Air 05/12/25 10:46 98.3 85 16 145/83 (103) 98 98.3 05/12/25 10:21 16 97 Room Air* 0 21 05/12/25 09:42 80 05/12/25 09:36 98.4 95 16 159/72 96 98.4 Lab Test 05/12/25 11:24 05/12/25 10:40 05/12/25 10:23 Range/Units Sodium Level 141 136-145 mmol/L Potassium Level 4.1 3.5-5.1 mmol/L Chloride Level 105 98-107 mmol/L Carbon Dioxide Level 26 20-31 mmol/L Anion Gap 10 5-15 Blood Urea Nitrogen 11 9-23 mg/dL Creatinine 1.36 H 0.550-1.02 mg/dL Glomerular Filtration Rate Calc 40 >90 mL/min BUN/Creatinine Ratio 8.1 L 10.0-20.0 Serum Glucose 99 74-106 mg/dL Calcium Level 9.8 8.7-10.4 mg/dL Urine Color Light-yellow Yellow Urine Clarity Clear Clear Urine pH 5.5 5.0-9.0 Urine Specific Twilight 1.009 1.001-1.035 Urine Protein Negative Negative Urine Ketones Negative Negative Urine Blood Negative Negative /uL Urine Nitrite Negative Negative Urine Bilirubin Negative Negative Urine Urobilinogen Normal Negative mg/dL Urine Leukocyte Esterase 1+ Negative /uL Urine RBC 1 0 - 4 /hpf Urine Microscopic WBC 6 H 0-5 /HPF Urine Squamous Epithelial Cells Few <5 /hpf Urine Bacteria None seen None Seen /hpf Urine Glucose Normal Normal mg/dL Magnesium Level 1.8 1.6-2.6 mg/dL Current Medications Medications (Trade) Dose Ordered Sig/Margarita Route Start Time Stop Time Status Last Admin Albuterol (Ventolin Medneb) 20 mg ONCE ONCE NEB 05/12/25 10:00 05/12/25 10:10 DC 05/12/25 10:21 Ceftriaxone Sodium 50 ml @ 100 mls/hr ONCE ONCE IV 05/12/25 11:45 05/12/25 12:14 DC 05/12/25 12:21 X-Ray, Labs, Meds, VS Comment CHEST RADIOGRAPH Indication: Generalized weakness Technique: Single frontal view of the chest was obtained COMPARISON: None FINDINGS: Lines and Tubes: None Lungs: Clear Pleura: No effusion. No pneumothorax. Cardiomediastinal contours: Unremarkable Bones: Unremarkable IMPRESSION: 1. No acute disease. Images Reviewed?: Images reviewed and evaluated by me Time of 1ST Reevaluation: 12:00 Reevaluation 1ST: Unchanged Patient Education/Counseling: Diagnosis, Treatment Family Education/Counseling: Diagnosis, Treatment Comments This is a 75-year-old female presented to the ED for abnormal lab referred from PCP BMP revealed hyperkalemia potassium 5.7, creatinine 1.81 Hyperkalemia protocol was ordered But repeat BMP demonstrated normal potassium 4.1 and creatinine 1.36 UA demonstrated 1+ leukocyte esterase, mild pyuria without bacteria Was given IV ceftriaxone 1 g once Patient was sent home with nitrofurantoin 100 mg p.o. b.i.d. for 5 days and advised to follow up with PCP SEPSIS Sepsis Screen Date sepsis recognized/suspect: May 12, 2025 Time Sepsis recognized/suspect: 936 Recent Procedure: No On Antibiotic Therapy: No Respiratory Rate >20: No Heart Rate >90: No Temp<36 C (96.8 F) or >38.3 C: No SBP <90 or MAP <65 mmHG: No New Acute Mental Status Change: No Is the patient on CPAP, BIPAP,: No Physician Orders Electrocardigram (05/12/25 09:57) Chest Portable (05/12/25 10:00) Vital Signs Date Time Temp Pulse Resp B/P (MAP) Pulse Ox O2 Delivery O2 Flow Rate FiO2 05/12/25 14:00 97 22 103/69 (80) 95 05/12/25 13:25 97.9 89 23 149/76 (100) 96 97.9 05/12/25 13:01 Room Air* 0 21 05/12/25 11:37 96 Room Air* 0 21 05/12/25 11:36 97.9 82 24 146/76 (99) 96 97.9 05/12/25 10:46 85 16 98 Room Air 05/12/25 10:46 98.3 85 16 145/83 (103) 98 98.3 05/12/25 10:21 16 97 Room Air* 0 21 05/12/25 09:42 80 05/12/25 09:36 98.4 95 16 159/72 96 98.4 Medications Medications Dose Ordered Sig/Margarita Route Start Time Stop Time Status Last Admin Dose Admin Albuterol 20 mg ONCE ONCE NEB 05/12/25 10:00 05/12/25 10:10 DC 05/12/25 10:21 Ceftriaxone Sodium 50 ml @ 100 mls/hr ONCE ONCE IV 05/12/25 11:45 05/12/25 12:14 DC 05/12/25 12:21 Departure 1 Departure Time of Disposition: 12:49 Impression: Primary Impression: Generalized weakness Additional Impressions: UTI (urinary tract infection) History of hyperkalemia Disposition: HOME / SELF CARE / HOMELESS Condition: Stable Additional Instructions: Additional instructions: You MUST follow-up with your primary care/family doctor in 1 to 2 days. If you are unable to see your primary care/family doctor, please return to our emergency room for re-assessment and re-evaluation in 1 to 2 days. Return to the emergency room here in our facility or to the nearest ER [facility] if your symptoms change or worsen. CONSULTATIONS: you MUST Follow-up for consultation as soon as possible with: -cardiology in 1-2 days. Please call for appointment. You MUST call the consultants office yourself to make an appointment. You may need to arrange that through your insurance and/or your primary/family doctor. If you are unable to see the behavioral health consultant in 1 to 2 days, you must return to our emergency room (or any other ER of your choice) for re-assessment and re- evaluation. Adequate fluid hydration. e-Prescriptions Nitrofurantoin Monohydrate Mac (Macrobid) 100 Mg Cap 100 MG PO BID for 7 Days, #14 CAP Prov: JOHNATHAN AGUILERA DO 05/12/25 Discharged With: Self Critical Care Note Critical Care Time?: No Stability Stability form required: No JA YOUNGER RESIDENT May 12, 2025 10:12 JOHNATHAN AGUILERA DO May 12, 2025 12:51
[2025-05-12] MEDS: ALBUTEROL SULF 2.5 MG/0.5ML(0.5%) NEB SOLN NEB ONE (10:21)
--- NOTE | 2025-05-12 10:31 | DVH ---
CHEST RADIOGRAPH Indication: Generalized weakness Technique: Single frontal view of the chest was obtained COMPARISON: None FINDINGS: Lines and Tubes: None Lungs: Clear Pleura: No effusion. No pneumothorax. Cardiomediastinal contours: Unremarkable Bones: Unremarkable IMPRESSION: 1. No acute disease.
[2025-05-12 11:30] LABS: Urine Protein, UAD Negative (Negative)
[2025-05-12 11:37] VITALS: O2SAT 96
[2025-05-12 12:08] LABS: Chloride 105 mmol/L (98-107); Potassium 4.1 mmol/L (3.5-5.1); Sodium 141 mmol/L (136-145)
[2025-05-12 12:09] LABS: Anion Gap 10 (5-15); Calcium 9.8 mg/dL (8.7-10.4); Carbon Dioxide 26 mmol/L (20-31)
[2025-05-12 12:14] LABS: BUN/Creatinine Ratio 8.1 (10.0-20.0); Blood Urea Nitrogen 11 mg/dL (9-23); Glucose 99 mg/dL (74-106)
[2025-05-12] MEDS: cefTRIAXone 1GM/50ML D5W 50 ML IV ONE (12:21)
[2025-05-12] MEDS: SODIUM ZIRCONIUM CYCL 10 GM PAK PO ONE (12:26)
[2025-05-12] MEDS: FUROSEMIDE 20 MG/2 ML VIAL IV ONE (12:27)
[2025-05-12 13:25] VITALS: TEMP 97.9
[2025-05-12 14:00] VITALS: BP 103/69; PULSE 97; RESP 22; O2SAT 95
[2025-05-12] MEDS ORDERED: NITR-87 PO (14:28)
--- NOTE | 2025-05-12 20:05 | ECG ---
[facility] Test Date: 2025-05-12 Test Time: 09:42:50 Pat Name: ENRRIQUE PATEL [facility] Patient [id number] Room: Gender: F Form Drafter: RICKI : 1950 Requested By: JA YOUNGER Order Number: [id number] Reading MD: Layton Ugarte Measurements Intervals [place] Rate: 80 P: 59 NH: 158 QRS: 28 QRSD: 92 T: 33 QT: 368 QTc: 425 Interpretive Statements Sinus rhythm Anteroseptal infarct, age indeterminate Electronically Signed On 05-16-2025 22:43:19 PDT by Layton Ugarte Please click the below link to view image of tracing.
== END 2025-05-12 14:43 | disposition home or self-care (01) ==
LOC: ER 09:35
DX: N39.0 Urinary tract infection, site not specified (principal); R53.1 Weakness; E03.9 Hypothyroidism, unspecified; F03.90 Unspecified dementia, unspecified severity, without behavioral disturbance, psychotic disturbance, mood disturbance, and anxiety; F20.9 Schizophrenia, unspecified; F32.A Depression, unspecified; K59.00 Constipation, unspecified; N18.9 Chronic kidney disease, unspecified; Z79.899 Other long term (current) drug therapy; Z90.710 Acquired absence of both cervix and uterus; Z88.2 Allergy status to sulfonamides
CPT/HCPCS: 36415; 71045; 80048; 81001; 83735; 93005; 94640; 96365; 99285; J0696

== ENCOUNTER 2025-08-23 06:04 | Outpatient (CLI) | payer BC ==
[~2025-08-23 06:04] MED LIST changes: +NITR-87 PO
[2025-08-23 07:23] LABS: Hematocrit 39.7 % (36.0-46.0); Hemoglobin 13.3 g/dL (12.2-16.2); Mean Corpuscular Hemoglobin 28.7 pg (28.0-32.0); Mean Corpuscular Volume 85.6 fL (80.0-100.0); Nucleated Red Blood Cells % 0.1 %
[2025-08-23 07:37] LABS: Alanine Aminotransferase 24 U/L (7-40); Anion Gap 6 (5-15); BUN/Creatinine Ratio 10.7 (10.0-20.0); Blood Urea Nitrogen 15 mg/dL (9-23); Calcium 9.6 mg/dL (8.7-10.4); Carbon Dioxide 30 mmol/L (20-31); Chloride 105 mmol/L (98-107); Glucose 85 mg/dL (74-106); Potassium 4.3 mmol/L (3.5-5.1); Sodium 141 mmol/L (136-145); Total Protein 6.9 g/dL (5.7-8.2)
[2025-08-23 07:38] LABS: Albumin 4.1 g/dL (3.2-4.8); Alkaline Phosphatase 45 U/L (46-116); Bilirubin, Total 0.6 mg/dL (0.2-1.0)
[2025-08-23 07:47] LABS: Urine Protein, UAD Negative (Negative)
[2025-08-23 07:48] LABS: Protein, Urine 8.3 mg/dL (1-14)
== END 2025-08-23 17:00 | disposition home or self-care (01) ==
LOC: LAB 06:04
PROVIDERS: ATTEND Internal Medicine
DX: E11.22 Type 2 diabetes mellitus with diabetic chronic kidney disease (principal); N18.30 Chronic kidney disease, stage 3 unspecified; E11.21 Type 2 diabetes mellitus with diabetic nephropathy; E21.3 Hyperparathyroidism, unspecified; E55.9 Vitamin D deficiency, unspecified; N39.0 Urinary tract infection, site not specified; D63.1 Anemia in chronic kidney disease; M10.9 Gout, unspecified; R80.9 Proteinuria, unspecified
CPT/HCPCS: 36415; 80053; 81001; 82306; 82570; 84100; 84156; 85025